=== PATIENT | female | born 1930 | race Caucasian/White ===

== ENCOUNTER 2018-03-16 23:49 | Observation (INO) ==
[~2018-03-16 23:49] MED LIST: Sod Chloride 0.9% Inj 1,000 ML IV.CONT SCH
--- NOTE | 2018-03-17 00:06 | ED ---
HPI General Chief Complaint: Stroke Alert Stated Complaint: Stroke Alert Time Seen by Provider: 03/16/18 23:56 Source: patient and EMS Mode of arrival: EMS History of Present Illness HPI Narrative: 87-year-old female presents to the emergency department by EMS transport from home 4 noted new onset confusion expressive aphasia weakness of the right upper extremity noted by patient and neighbor although now the patient is arrived to the emergency department identifies that some time prior to 10 PM she went to bed is unsure what time she went to bed awakened at 10 PM noted confusion and went to see her neighbor who noted the symptoms of confusion and expressive aphasia as well as a right upper extremity weakness. Paramedics arrived and noted patient to be ambulatory but had expressive aphasia and confusion blood sugar was 110 patient was alert and oriented 2 with a GCS of 14 and stroke alert was felt to be indicated. Patient upon arrival here remains with mild confusion but is aware of who she is where she is and the events although does not know what time she originally went to bed this evening. Paramedics note now that symptoms are much improved. Patient takes no blood thinning agents. Patient does have history of hypertension and dyslipidemia is not diabetic. Patient was reportedly normal according to paramedics per son's report as he spoke with her yesterday. Patient is recently a no one is in the home throughout the day reportedly. Onset (ago): unknown Timing confirmed by: family member (spoke with patient as normal yesterday) and caregiver (neighbor 30 minutes ago noted symptoms not seen normal prior to this since yesterday) Location: speech, right arm and altered History of same: No Severity: moderate (per EMS upon initial evaluation now mild) Quality: weak Relieving factors: none Exacerbating factors: other (unknown) Context: other (unknown) On Anticoagulants: No Associated symptoms: confusion Treatments Prior to Arrival: none Related Data Home Medications Medication Instructions Recorded Confirmed alendronate 70 mg PO QWEEK 03/17/18 03/17/18 allopurinol 100 mg PO DAILY 03/17/18 03/17/18 furosemide 20 mg PO DAILY 03/17/18 03/17/18 lansoprazole 30 mg PO DAILY 03/17/18 03/17/18 losartan 25 mg PO DAILY 03/17/18 03/17/18 potassium chloride 20 meq PO DAILY 03/17/18 03/17/18 simvastatin 40 mg PO QPM 03/17/18 03/17/18 timolol 1 drp OPHTHALMIC (EYE) BID 03/17/18 03/17/18 Allergies Allergy/AdvReac Type Severity Reaction Status Date / Time No Known Allergies Allergy Unverified 03/16/18 23:57 Review of Systems ROS: all other systems reviewed are negative [facility] Medical History Medical History High cholesterol (Acute) Hypertension (Acute) Social History Social History Substance History: No History of Abuse Second Hand Smoke Exposure: Yes Smoking Status: Never smoker How Often Do You Have a Drink Containing Alcohol: Never Recent Travel in [facility] within the Last 8 Weeks: No Recent Out of Country Travel within the Last 8 Weeks: No Exam Narrative Exam Narrative: GENERAL: Well-developed well-nourished elderly female in no acute respiratory distress GCS 14 mild expressive aphasia SKIN: Focused skin assessment warm/dry. HEAD: Atraumatic. Normocephalic. EYES: Pupils equal and round. No scleral icterus. No injection or drainage. ENT: No nasal bleeding or discharge. Mucous membranes pink and moist. NECK: Trachea midline. No JVD. CARDIOVASCULAR: Regular rate and rhythm. No murmur appreciated. RESPIRATORY: No accessory muscle use. Clear to auscultation. Breath sounds equal bilaterally. GASTROINTESTINAL: Abdomen soft, non-tender, nondistended. Hepatic and splenic margins not palpable. MUSCULOSKELETAL: No obvious deformities. No clubbing. No cyanosis. No edema. NEUROLOGICAL: Awake and alert. No obvious cranial nerve deficits. Motor grossly within normal limits. No pronator drift. Normal speech. PSYCHIATRIC: Appropriate mood and affect; insight and judgment normal. Course Initial Documented Vital Signs Pulse Oximetry 98 03/16/18 23:52 Last Documented Vital Signs Temperature 98.6 F 03/16/18 23:55 Pulse Rate 60 03/17/18 00:01 Respiratory Rate 22 03/16/18 23:55 Blood Pressure 199/87 H 03/16/18 23:55 Pulse Oximetry 98 03/17/18 00:11 NIH Stroke Scale NIH Stroke Scale Level of Consciousness: 0-Alert Orientation Questions: 0-Answers both correct Responds to Commands: 0-Both tasks correct Gaze Eye Movement: 0-Horizontal movement WNL Visual Reese: 0-No visual field defect Facial Movement: 0-Normal Motor Functions Arm LEFT: 0-No drift Motor Functions Arm RIGHT: 0-No drift Motor Functions Leg LEFT: 0-No drift Motor Functions Leg RIGHT: 0-No drift Limb Ataxia: 0-No ataxia Sensory Loss: 0-No sensory loss Best Language: 1-Mild aphasia Articulation: 0-Normal Extinction or Inattention Sensory: 0-Absent Total: 1 Medical Decision Making MDM Narrative Medical decision making narrative: Stroke alert called at 20 3:52 PM discussed case with neurologist Dr. Newton at 20 3:53 PM patient is not a TPA candidate administer aspirin head of bed flat continuous IV fluids 70 cc/h consult to neurology in the a.m. NIHSS:1 discussed with neurologist --now aware onset time unknown --not tpa candidate At 1238 AM per reading radiologist Dr. Oh CT brain noncontrast nothing acute old infarct in the right parietal temporal lobe. CTA head/neck no acute process @ 200AM GCS 15 back to baseline denies confusion no expressive aphasia discussed with Dr Dominguez for OBS Medical Screen Exam Complete: Yes Emergency Medical Condition: Yes Differential Diagnosis Differential Diagnosis: Altered mental status with expressive aphasia, TIA, CVA , ICH, arrhythmia, paroxysmal atrial fibrillation, ACS, depression, electrolyte disturbance, hypoglycemia, malignancy Medical Records Medical records reviewed: Yes I reviewed the patient's medical records. Has been seen by hematology, Dr Andujar, for abnormal white cell count notes not available Lab Data Lab results reviewed: Yes I reviewed the patient's lab results. Result diagrams: 03/17/18 00:05 Lab Results 03/16/18 03/17/18 03/17/18 Range/Units 23:58 00:05 00:05 WBC 6.2 (4.0-11.0) th/mm3 RBC 3.67 L (4.00-5.30) mil/mm3 Hgb 11.6 (11.6-15.3) gm/dL POC Hgb (Calc) (11.6-15.3) g/dL Hct 34.9 L (35.0-46.0) % POC Hct (35-46.0) % MCV 95.0 (80.0-100.0) fL MCH 31.6 (27.0-34.0) pg MCHC 33.2 (32.0-36.0) % RDW 14.9 (11.6-17.2) % Plt Count 198 (150-450) th/mm3 MPV 9.7 (7.0-11.0) fL Neut % (Auto) 54.7 (16.0-70.0) % Lymph % (Auto) 35.0 (9.0-44.0) % [place] % (Auto) 8.6 H (0.0-8.0) % Eos % (Auto) 1.1 (0.0-4.0) % Baso % (Auto) 0.6 (0.0-2.0) % Neut # (Auto) 3.4 (1.8-7.7) th/mm3 Lymph # (Auto) 2.2 (1.0-4.8) th/mm3 [place] # (Auto) 0.5 (0.0-0.9) th/mm3 Eos # (Auto) 0.1 (0.0-0.4) th/mm3 Baso # (Auto) 0.0 (0.0-0.2) th/mm3 WBC Differential . Differential Comment Auto diff final PT 10.0 (9.8-11.6) sec INR 1.0 Ratio APTT 19.5 L (24.3-30.1) sec Fibrinogen 274 (227-377) mg/dL POC Sodium (137-144) mmol/L POC Potassium (3.6-5.0) mmol/L POC Chloride (102-111) mmol/L POC BUN (5-21) mg/dL POC Creatinine (0.6-1.3) mg/dL POC Glucose 87 (68-110) mg/dl Total Creatine Kinase (26-192) U/L Troponin I (0.02-0.05) ng/mL Beta HCG, Quant (0-5) mIU/mL Blood Type Blood Type Recheck Antibody Screen 03/17/18 03/17/18 Range/Units 00:05 00:40 WBC (4.0-11.0) th/mm3 RBC (4.00-5.30) mil/mm3 Hgb (11.6-15.3) gm/dL POC Hgb (Calc) 11.2 L (11.6-15.3) g/dL Hct (35.0-46.0) % POC Hct 33.0 L (35-46.0) % MCV (80.0-100.0) fL MCH (27.0-34.0) pg MCHC (32.0-36.0) % RDW (11.6-17.2) % Plt Count (150-450) th/mm3 MPV (7.0-11.0) fL Neut % (Auto) (16.0-70.0) % Lymph % (Auto) (9.0-44.0) % [place] % (Auto) (0.0-8.0) % Eos % (Auto) (0.0-4.0) % Baso % (Auto) (0.0-2.0) % Neut # (Auto) (1.8-7.7) th/mm3 Lymph # (Auto) (1.0-4.8) th/mm3 [place] # (Auto) (0.0-0.9) th/mm3 Eos # (Auto) (0.0-0.4) th/mm3 Baso # (Auto) (0.0-0.2) th/mm3 WBC Differential Differential Comment PT (9.8-11.6) sec INR Ratio APTT (24.3-30.1) sec Fibrinogen (227-377) mg/dL POC Sodium 140 (137-144) mmol/L POC Potassium 3.9 (3.6-5.0) mmol/L POC Chloride 104 (102-111) mmol/L POC BUN 26 H (5-21) mg/dL POC Creatinine 1.3 (0.6-1.3) mg/dL POC Glucose 96 (68-110) mg/dl Total Creatine Kinase 56 (26-192) U/L Troponin I Less than 0.02 L (0.02-0.05) ng/mL Beta HCG, Quant 2 (0-5) mIU/mL Blood Type A Positive Blood Type Recheck Antibody Screen Negative Imaging Data Radiologist's impression: Head CT 03/16/18 23:57 CONCLUSION: 1. No bleed or convincing evidence for an acute ischemic event. 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 Report was called to Dr. King at 12:38 AM Head CTA 03/16/18 23:57 CONCLUSION: No acute abnormality. Patent intracranial vessels. Neck CTA 03/16/18 23:57 CONCLUSION: 1. Mild atherosclerotic plaque of the bilateral carotid bifurcations without evidence of significant narrowing. No thrombosis or other acute abnormality is demonstrated. 2. Thyroid nodules and if not previously done, further characterization with outpatient thyroid ultrasound is recommended. Chest X-Ray 03/17/18 00:01 CONCLUSION: No evidence of acute cardiopulmonary disease. ECG Data EKG Prior to Arrival: Yes Attestation: I personally reviewed and interpreted this ECG as follows: (EKG normal sinus rhythm rate [address] elevation or injury pattern with occasional PAC) Prior ECG tracings: not available for review Discharge Plan Discharge Disposition Patient Disposition: 30 Still Patient Discharge Condition Condition: Stable Discharge Details Diagnosis: Transient cerebral ischemia Physicians Team ED Provider: Susan King Primary Care Provider: UNKNOWN, Attending Provider: Crys Dominguez Other Providers: Diaz Newton Status ED Status: Admitted Observation Patient
[2018-03-17 00:28] LABS: Baso % (Auto) 0.6 % (0.0-2.0); Eos # (Auto) 0.1 th/mm3 (0.0-0.4); Eos % (Auto) 1.1 % (0.0-4.0); Hematocrit 34.9 % (35.0-46.0); Hemoglobin 11.6 gm/dL (11.6-15.3); Lymph # (Auto) 2.2 th/mm3 (1.0-4.8); Mean Corpuscular HGB Conc 33.2 % (32.0-36.0); Mean Corpuscular Hemoglobin 31.6 pg (27.0-34.0); Mean Platelet Volume 9.7 fL (7.0-11.0); Mono # (Auto) 0.5 th/mm3 (0.0-0.9); Mono % (Auto) 8.6 % (0.0-8.0); Neut # (Auto) 3.4 th/mm3 (1.8-7.7); Neut % (Auto) 54.7 % (16.0-70.0); Platelet Count 198 th/mm3 (150-450); Red Blood Count 3.67 mil/mm3 (4.00-5.30); Red Cell Distribution Width 14.9 % (11.6-17.2); White Blood Count 6.2 th/mm3 (4.0-11.0)
[2018-03-17 00:33] LABS: Activated Partial Thrombo Time 19.5 sec (24.3-30.1)
--- NOTE | 2018-03-17 00:41 | CT ---
EXAM DATE: 03/17/2018 12:33 AM EDT AGE/SEX: 87 years / Female INDICATIONS: Stroke alert; expressive aphasia, right facial droop. CLINICAL DATA: This is the patient's initial encounter. Patient reports that signs and symptoms have been present for 1 day and indicates a pain score of Nonresponsive. MEDICAL/SURGICAL HISTORY: Non-responsive. Non-responsive. RADIATION DOSE: 36.33 CTDI (mGy) COMPARISON: No prior exams available for comparison. TECHNIQUE: CT of the head without contrast. Using automated exposure control and adjustment of the mA and/or kV according to patient size, radiation dose was kept as low as reasonably achievable to ob tain optimal diagnostic quality images. DICOM format image data is available electronically for revi ew and comparison. FINDINGS: Cerebrum: The ventricles are normal for age. No evidence of midline shift, mass lesion, hemorrhage or acute infarction. No extraaxial fluid collections are seen. Small chronic encephalomalacia of the right parietotemporal region. No convincing evidence of an acute ischemic event. Posterior Fossa: The cerebellum and brainstem are intact. The 4th ventricle is midline. The cerebe llopontine angle is unremarkable. Extracranial: The visualized portion of the orbits is intact. Skull: The calvaria is intact. No evidence of skull fracture. CONCLUSION: 1. No bleed or convincing evidence for an acute ischemic event. 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 Report was called to Dr. King at 12:38 AM Electronically signed by: Dejan Oh MD 03/17/2018 12:39 AM EDT
--- NOTE | 2018-03-17 01:01 | CT ---
EXAM DATE: 03/17/2018 12:40 AM EDT AGE/SEX: 87 years / Female INDICATIONS: Stroke alert; episode of expressive aphasia. CLINICAL DATA: This is the patient's initial encounter. Patient reports that signs and symptoms have been present for 1 day and indicates a pain score of Nonresponsive. MEDICAL/SURGICAL HISTORY: Non-responsive. Non-responsive. RADIATION DOSE: 27.08 CTDI (mGy) ; Combined studies COMPARISON: [facility] [place], CT HEAD W/O CONTRAST, 03/17/2018. . TECHNIQUE: Volumetric scanning was performed using a multi-row detector CT scanner during bolus infu wilman of 96 ml Visipaque 320 (iodixanol) nonionic water-soluble contrast as a cumulative dose for mul tiple exams. The data was post processed with a variety of visualization algorithms including full volume maximum intensity projection, multi-planar sliding thin slab reformation, curved planar reform ation, and surface rendering techniques. Using automated exposure control and adjustment of the mA a nd/or kV according to patient size, radiation dose was kept as low as reasonably achievable to obtain optimal diagnostic quality images. DICOM format image data is available electronically for review a nd comparison. FINDINGS: There is excellent visualization of the major intracranial arteries out to the second-order branch ve ssels. There is no evidence for aneurysm, vessel truncation or stenosis, and no evidence for vascula r malformation. CONCLUSION: No acute abnormality. Patent intracranial vessels. Electronically signed by: Dejan Oh MD 03/17/2018 1:00 AM EDT
--- NOTE | 2018-03-17 01:05 | CT ---
EXAM DATE: 03/17/2018 12:57 AM EDT AGE/SEX: 87 years / Female INDICATIONS: Stroke alert; episode of expressive aphasia. CLINICAL DATA: This is the patient's initial encounter. Patient reports that signs and symptoms have been present for 1 day and indicates a pain score of Nonresponsive. MEDICAL/SURGICAL HISTORY: Non-responsive. Non-responsive. RADIATION DOSE: 36.33 CTDI (mGy) ; Combined studies COMPARISON: . TECHNIQUE: Volumetric scanning was performed using a multirow detector CT scanner during bolus infus ion of 96 ml Visipaque 320 (iodixanol) nonionic water-soluble contrast as a cumulative dose for mult iple exams. The data was postprocessed with a variety of visualization algorithms including full-vo lume maximum intensity projection, multiplanar sliding thin-slab reformation, curved-planar reformati on, and surface-rendering techniques. Using automated exposure control and adjustment of the mA and/ or kV according to patient size, radiation dose was kept as low as reasonably achievable to obtain op timal diagnostic quality images. DICOM format image data is available electronically for review and comparison. Percent stenosis is calculated using the diameter of the stenotic region over the diameter of the nor mal distal internal carotid artery. FINDINGS: Aortic Arch: There is a three-vessel origin of the great vessels from the aorta. No evidence of ost ial narrowing Right Carotid: There is atherosclerosis involving the bulb and proximal internal carotid artery with out significant narrowing. Left Carotid: There is atherosclerosis of the bulb and proximal internal carotid artery without sign ificant narrowing. Vertebrals: The vertebral arteries have a symmetric diameter. No stenotic lesions are seen. Nodules are seen of the thyroid gland. CONCLUSION: 1. Mild atherosclerotic plaque of the bilateral carotid bifurcations without evidence of significant narrowing. No thrombosis or other acute abnormality is demonstrated. 2. Thyroid nodules and if not previously done, further characterization with outpatient thyroid ultr asound is recommended. Electronically signed by: Dejan Oh MD 03/17/2018 1:03 AM EDT
--- NOTE | 2018-03-17 01:06 | XR ---
EXAM DATE: 03/17/2018 12:38 AM EDT AGE/SEX: 87 years / Female INDICATIONS: Stroke alert. CLINICAL DATA: This is the patient's initial encounter. Patient reports that signs and symptoms have been present for 1 day and indicates a pain score of 0/10. MEDICAL/SURGICAL HISTORY: Hypertension. None. COMPARISON: No prior exams available for comparison. FINDINGS: A single AP view of the chest demonstrates the lungs to be symmetrically aerated without evidence of mass, infiltrate or effusion. The cardiomediastinal contours are unremarkable. Osseous structures a re intact. CONCLUSION: No evidence of acute cardiopulmonary disease. Electronically signed by: Dejan Oh MD 03/17/2018 1:05 AM EDT
[2018-03-17 01:07] LABS: Beta HCG,Quantitative 2 mIU/mL (0-5)
[2018-03-17 01:08] LABS: Creatine Kinase 56 U/L (26-192)
[2018-03-17] MEDS ORDERED: Aspirin 325 MG Tablet PO ONE (01:55)
[2018-03-17] MEDS ORDERED: Bisacodyl 10 MG Supp RECTAL PRN (02:20)
[2018-03-17] MEDS ORDERED: Acetaminophen 325 MG Tablet PO PRN (02:20)
--- NOTE | 2018-03-17 03:38 | P.HPIM ---
History of Present Illness Primary Care Physician: UNKNOWN History of Present Illness: This is an 87-year-old female with a PMH of HTN, Hyperlipidemia and h/o CVA who was brought to the ER by EMS as a Stroke Alert. Pt states she has very little recollection of events, remembers she was "very confused" and went to her neighbor's house who then called EMS. Per report, pt noted to have slurred speech and right-sided weakness. Symptoms all resolved at this time. On arrival, BP 199/87, HR 62, O2 sat 98% on 3L NC, Afebrile. CBC essentially unremarkable. INR 1.0. Chemistry unremarkable. CT Head with no acute ischemic event, old right parietotemporal infarct, pt states she is aware of this. CTA Head no acute abnormalit. CTA Neck mild atherosclerotic plaque of bilateral carotid bifurcations, no significant narrowing. Dr. Newton consulted , pt not TPA candidate. Does take ASA 81mg daily - Diagnosis (1) TIA (transient ischemic attack) (2) HTN (hypertension) Review of Systems PAST FAMILY HISTORY: Reviewed. No h/o DM or CAD All other systems reviewed negative except as stated in [facility] - History History Provided By: Patient, [employer] / EMT - Medical History Medical History: Medical History (Last Reviewed 03/17/18 @ 00:05 by Susan King MD) High cholesterol Hypertension - Tobacco History Second Hand Smoke Exposure: Yes Smoking Status: Never smoker - Alcohol History How Often Do You Have a Drink Containing Alcohol: Never - Substance Use History Substance History: No History of Abuse - Travel History Recent Travel in the [place] Within the Last 8 Weeks: No Recent Travel Out of the Country Within the Last 8 Weeks: No - Immunization History Tetanus Immunization: Unsure Hx Influenza Vaccine This Season: Yes Medications and Allergies Active Medications: Active Medications Acetaminophen (Tylenol) 650 mg PO Q4H PRN PRN Reason: Temp > 100.4 Al Hydroxide/Mg Hydroxide (Milk Of Magnesia Liq) 30 ml PO Q12H PRN PRN Reason: Mild Constipation Bisacodyl (Dulcolax Supp) 10 mg RECTAL DAILY PRN PRN Reason: SEVERE CONSITIPATION Enalaprilat (Vasotec Inj) 1.25 mg IV.PUSH Q4H PRN PRN Reason: For SBP > 220 or DBP > 120 Sodium Chloride (Ns Inj) 1,000 mls @ 70 mls/hr IV.CONT .[id number] JASBIR Lactulose (Lactulose Liq) 30 ml PO DAILY PRN PRN Reason: SEVERE CONSITIPATION Ondansetron HCl (Zofran Inj) 4 mg IV.PUSH Q6H PRN PRN Reason: NAUSEA OR VOMITING Senna/Docusate Sodium (Barbra-Colace) 1 tab PO BID [facility] Sennosides (Senokot) 17.2 mg PO Q12H PRN PRN Reason: Moderate Constipation Allergies Allergy/AdvReac Type Severity Reaction Status Date / Time No Known Allergies Allergy Unverified 03/16/18 23:57 Home Medications Medication Instructions Recorded Confirmed Type alendronate 70 mg PO QWEEK 03/17/18 03/17/18 History allopurinol 100 mg PO DAILY 03/17/18 03/17/18 History furosemide 20 mg PO DAILY 03/17/18 03/17/18 History lansoprazole 30 mg PO DAILY 03/17/18 03/17/18 History losartan 25 mg PO DAILY 03/17/18 03/17/18 History potassium chloride 20 meq PO DAILY 03/17/18 03/17/18 History simvastatin 40 mg PO QPM 03/17/18 03/17/18 History timolol 1 drp OPHTHALMIC (EYE) BID 03/17/18 03/17/18 History Exam Vital signs: Vital Signs 03/16/18 23:52 03/16/18 23:55 03/17/18 00:01 Temperature 98.6 F Pulse Rate 62 60 Respiratory Rate 22 Blood Pressure 199/87 H Pulse Oximetry 98 100 03/17/18 00:11 Temperature Pulse Rate Respiratory Rate Blood Pressure Pulse Oximetry 98 Narrative: PE: GENERAL: Generally pleasant elderly white female in no acute distress. No slurred speech SKIN: Focused skin assessment warm and dry. HEENT: PERRLA, EOMI. No scleral icterus or conjunctival pallor. No lid lag or facial droop. CARDIOVASCULAR: Regular rate and rhythm. No obvious murmurs to auscultation. No chest tenderness to palpation. RESPIRATORY: No obvious rhonchi or wheezing. Clear to auscultation. Breath sounds equal bilaterally. GASTROINTESTINAL: Abdomen soft, non-tender, nondistended. BS normal. MUSCULOSKELETAL: Extremities without clubbing, cyanosis, or edema. No obvious deformities. NEUROLOGICAL: Awake, alert and oriented x4. No focal neurologic deficits. Strength 5/5 all extremities. Moving both upper and lower extremities spontaneously. PSYCHIATRIC: Appropriate mood and affect. Insight and judgment normal. Results - Labs CBC & Chem 7: 03/17/18 00:05 Labs: Short CBC 03/17/18 Range/Units 00:05 WBC 6.2 (4.0-11.0) th/mm3 Hgb 11.6 (11.6-15.3) gm/dL Hct 34.9 L (35.0-46.0) % Plt Count 198 (150-450) th/mm3 Cardiac Enzymes 03/17/18 Range/Units 00:05 Total Creatine Kinase 56 (26-192) U/L Troponin I Less than 0.02 L (0.02-0.05) ng/mL - Imaging Impressions Head CT 03/16/18 23:57 CONCLUSION: 1. No bleed or convincing evidence for an acute ischemic event. 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 Report was called to Dr. King at 12:38 AM Head CTA 03/16/18 23:57 CONCLUSION: No acute abnormality. Patent intracranial vessels. Neck CTA 03/16/18 23:57 CONCLUSION: 1. Mild atherosclerotic plaque of the bilateral carotid bifurcations without evidence of significant narrowing. No thrombosis or other acute abnormality is demonstrated. 2. Thyroid nodules and if not previously done, further characterization with outpatient thyroid ultrasound is recommended. Chest X-Ray 03/17/18 00:01 CONCLUSION: No evidence of acute cardiopulmonary disease. Caprini VTE Risk Assessment Caprini VTE Risk Assessment: No/Low Risk (score <= 1) Caprini Risk Assessment Model: Point Value = 1 Point Value = 2 Point Value = 3 Point Value = 5 Age 41-60 Minor surgery BMI > 25 kg/m2 Swollen legs Varicose veins or History of unexplained or recurrent spontaneous Oral contraceptives or hormone replacement Sepsis (< 1 month) Serious lung disease, including pneumonia (< 1 month) Abnormal pulmonary function Acute myocardial infarction Congestive heart failure (< 1 month) History of inflammatory bowel disease Medical patient at bed rest Age 61-74 Arthroscopic surgery Major open surgery (> 45 min) Laparoscopic surgery (> 45 min) Malignancy Confined to bed (> 72 hours) Immobilizing plaster cast Central venous access Age >= 75 History of VTE Family history of VTE Factor V Leiden Prothrombin [id number] Lupus anticoagulant Anticardiolipin antibodies Elevated serum homocysteine Heparin-induced thrombocytopenia Other congenital or acquired thrombophilia Stroke (< 1 month) Elective arthroplasty Hip, pelvis, or leg fracture Acute spinal cord injury (< 1 month) Prophylaxis Regimen: Total Risk Factor Score Risk Level Prophylaxis Regimen 0-1 Low Early ambulation 2 Moderate Order ONE of the following: *Sequential Compression Device (SCD) *Heparin 5000 units SQ BID 3-4 Higher Order ONE of the following medications: *Heparin 5000 units SQ TID *Enoxaparin/Lovenox 40 mg SQ daily (WT < 150 kg, CrCl > 30 mL/min) *Enoxaparin/Lovenox 30 mg SQ daily (WT < 150 kg, CrCl > 10-29 mL/min) *Enoxaparin/Lovenox 30 mg SQ BID (WT < 150 kg, CrCl > 30 mL/min) AND/OR *Sequential Compression Device (SCD) 5 or more Highest Order ONE of the following medications: *Heparin 5000 units SQ TID (Preferred with Epidurals) *Enoxaparin/Lovenox 40 mg SQ daily (WT < 150 kg, CrCl > 30 mL/min) *Enoxaparin/Lovenox 30 mg SQ daily (WT < 150 kg, CrCl > 10-29 mL/min) *Enoxaparin/Lovenox 30 mg SQ BID (WT < 150 kg, CrCl > 30 mL/min) AND *Sequential Compression Device (SCD) Assessment and Plan - Assessment (1) TIA (transient ischemic attack) Code(s): G45.9 - Transient cerebral ischemic attack, unspecified Status: Acute (2) HTN (hypertension) Code(s): I10 - Essential (primary) hypertension Status: Acute - Plan A/P: 1. TIA: acute onset of confusion, expressive aphasia and right-sided weakness , now resolved. CT Head w/ old right parietotemporal infarct, images reviewed. CTA Head negative, CTA Neck w/ mild plaque bilateral carotid bifurcations, no significant narrowing. Admit for Observation, telemetry, Consult Neurology for further eval/recommendations. ASA 325mg, Statin. Check Lipid Profile, Hgb A1c. PT for eval/tx. 2. HTN: Uncontrolled, BP 199/87, HR 62 on arrival, will allow for permissive HTN, antihypertensives for BP >220 systolic, monitor BP. 3. DVT Prophylaxis: SCD/Teds 4. Social work for d/c planning as needed 5. Case discussed w/ ER physician at length, labs/records/imaging reviewed by me.
[2018-03-17 04:01] LABS: Amphetamine Screen,Urine Neg (Neg); Barbiturate Screen,Urine Neg (Neg); Cannabinoid Screen,Urine Neg (Neg); Cocaine Screen,Urine Neg (Neg)
[2018-03-17 04:02] LABS: Opiate Screen,Urine Neg (Neg)
[2018-03-17 04:03] LABS: Bacteria,Urine Rare /hpf; Bilirubin,Urine Negative (Negative); Clarity,Urine Clear (Clear); Color,Urine Straw (Yellw/Straw); Glucose,Urine (UA) Negative (Negative); Leukocyte Esterase,Urine Small (Negative); Nitrite,Urine Negative (Negative); Specific Gravity,Urine 1.025 (1.002-1.035); Squamous Epithelial Cell,Urine 1 /hpf (0-5)
[2018-03-17] MEDS: Sod Chloride 0.9% Inj 1,000 ML IV.CONT SCH ×2 (04:07→15:55)
[2018-03-17 07:30] LABS: Baso % (Auto) 0.5 % (0.0-2.0); Eos % (Auto) 0.5 % (0.0-4.0); Hematocrit 33.7 % (35.0-46.0); Hemoglobin 11.1 gm/dL (11.6-15.3); Lymph # (Auto) 1.5 th/mm3 (1.0-4.8); Lymph % (Auto) 24.5 % (9.0-44.0); Mean Corpuscular Hemoglobin 31.5 pg (27.0-34.0); Mean Corpuscular Volume 95.4 fL (80.0-100.0); Mean Platelet Volume 9.8 fL (7.0-11.0); Mono # (Auto) 0.7 th/mm3 (0.0-0.9); Mono % (Auto) 10.7 % (0.0-8.0); Neut # (Auto) 3.9 th/mm3 (1.8-7.7); Neut % (Auto) 63.8 % (16.0-70.0); Platelet Count 174 th/mm3 (150-450); Red Blood Count 3.53 mil/mm3 (4.00-5.30); Red Cell Distribution Width 14.9 % (11.6-17.2); White Blood Count 6.2 th/mm3 (4.0-11.0)
[2018-03-17 07:50] LABS: Albumin 2.9 g/dL (3.4-5.0); Anion Gap 6 meq/L (5-15); Aspartate Aminotransferase 21 U/L (15-37); Blood Urea Nitrogen 21 mg/dL (7-18); Calcium 8.1 mg/dL (8.5-10.1); Carbon Dioxide 25.9 meq/L (21.0-32.0); Chloride 109 meq/L (98-107); Glomerular Filtration Rate 46 mL/min (>89); Glucose,Random 91 mg/dL (74-106); Sodium 141 meq/L (136-145)
[2018-03-17 07:51] LABS: Alanine Aminotransferase 16 U/L (10-53); Cholesterol 99 mg/dL (120-200); Triglycerides 77 mg/dL (42-150)
[2018-03-17 07:54] LABS: Alkaline Phosphatase 69 U/L (45-117); Chol/HDL Ratio 2.22 Ratio; HDL Cholesterol 44.5 mg/dL (40.0-60.0); LDL Cholesterol,Calculated 39 mg/dL (0-99); Total Protein 6.5 g/dL (6.4-8.2)
--- NOTE | 2018-03-17 09:30 | P.CONNEU ---
History of Present Illness Service: Neurology Primary Care Provider: UNKNOWN Chief Complaint: Stroke alert History of Present Illness: Pleasant 87-year-old female brought in for episode of confusion. Late at night states she fell, confused walked out to see her neighbor. Some history of her having some right sided weakness although patient cannot verify this to be. She does take aspirin daily. No previous history of TIA stroke was brought in for further evaluation. Blood pressure is noted be [address] brain scan no acute lesion. CTAs brain and carotid no significant vaso-occlusive disease. Her symptoms had resolved therefore was not considered IV TPA candidate. She states this never happened to her before. Denies any headache vision loss focal weakness. Slept well feels well this morning. She did call her son lives in [place] who has come up to see her. Unfortunately she is a recent her spouse earlier this month. Review of Systems All other systems reviewed negative except as stated in HPI [facility] - History History Provided By: Patient - Medical History Medical History: Medical History (Last Reviewed 03/17/18 @ 07:27 by Juanito Delgadillo) High cholesterol Hypertension - Tobacco History Second Hand Smoke Exposure: No Tobacco Use In Past 30 Days: No Smoking Status: Former smoker - Alcohol History How Often Do You Have a Drink Containing Alcohol: Never - Substance Use History Substance History: No History of Abuse - Travel History Recent Travel in the [place] Within the Last 8 Weeks: No Recent Travel Out of the Country Within the Last 8 Weeks: No - Immunization History Tetanus Immunization: Unsure Hx Influenza Vaccine This Season: Yes Medications and Allergies Active Medications: Active Medications Acetaminophen (Tylenol) 650 mg PO Q4H PRN PRN Reason: Temp > 100.4 Al Hydroxide/Mg Hydroxide (Milk Of Magnesia Liq) 30 ml PO Q12H PRN PRN Reason: Mild Constipation Aspirin (Ecotrin) 325 mg PO DAILY JASBIR Bisacodyl (Dulcolax Supp) 10 mg RECTAL DAILY PRN PRN Reason: SEVERE CONSITIPATION Enalaprilat (Vasotec Inj) 1.25 mg IV.PUSH Q4H PRN PRN Reason: For SBP > 220 or DBP > 120 Sodium Chloride (Ns Inj) 1,000 mls @ 70 mls/hr IV.CONT .[id number] JASBIR Last Admin: 03/17/18 04:07 Dose: 70 mls/hr Lactulose (Lactulose Liq) 30 ml PO DAILY PRN PRN Reason: SEVERE CONSITIPATION Ondansetron HCl (Zofran Inj) 4 mg IV.PUSH Q6H PRN PRN Reason: NAUSEA OR VOMITING Pravastatin Sodium (Pravachol) 40 mg PO DAILY JASBIR Senna/Docusate Sodium (Barbra-Colace) 1 tab PO BID JASBIR Sennosides (Senokot) 17.2 mg PO Q12H PRN PRN Reason: Moderate Constipation Allergies Allergy/AdvReac Type Severity Reaction Status Date / Time No Known Allergies Allergy Unverified 03/16/18 23:57 Home Medications Medication Instructions Recorded Confirmed Type alendronate 70 mg PO QWEEK 03/17/18 03/17/18 History allopurinol 100 mg PO DAILY 03/17/18 03/17/18 History furosemide 20 mg PO DAILY 03/17/18 03/17/18 History lansoprazole 30 mg PO DAILY 03/17/18 03/17/18 History losartan 25 mg PO DAILY 03/17/18 03/17/18 History potassium chloride 20 meq PO DAILY 03/17/18 03/17/18 History simvastatin 40 mg PO QPM 03/17/18 03/17/18 History timolol 1 drp OPHTHALMIC (EYE) BID 03/17/18 03/17/18 History Exam Vital signs: Vital Signs 03/16/18 23:52 03/16/18 23:55 03/17/18 00:01 Temperature 98.6 F Pulse Rate 62 60 Respiratory Rate 22 Blood Pressure 199/87 H Pulse Oximetry 98 100 03/17/18 00:11 03/17/18 00:30 03/17/18 01:00 Temperature Pulse Rate 64 70 Respiratory Rate 22 24 Blood Pressure 151/69 H 159/72 H Pulse Oximetry 98 100 100 03/17/18 02:00 03/17/18 03:00 03/17/18 04:00 Temperature 98.0 F Pulse Rate 68 66 67 Respiratory Rate 16 21 18 Blood Pressure 159/70 H 157/68 H 139/64 Pulse Oximetry 100 98 97 03/17/18 05:43 03/17/18 08:30 Temperature 97.5 F L Pulse Rate 62 66 Respiratory Rate 18 Blood Pressure 152/75 H Pulse Oximetry 97 Intake & Output 03/16/18 03/17/18 03/17/18 18:59 06:59 18:59 Intake Total 0 / 0 Balance 0 / 0 Intake: Oral 0 / 0 Other: # Voids 0 Narrative: GENERAL: in NAD, looks well SKIN: Warm and dry. HEAD: Atraumatic. Normocephalic. EYES: Pupils equal and round. No scleral icterus. ENT: No nasal bleeding or discharge. Mucous membranes pink and moist. NECK: Trachea midline. No JVD. CARDIOVASCULAR: Regular rate and rhythm. RESPIRATORY: No accessory muscle use. GASTROINTESTINAL: Abdomen soft, non-tender, nondistended. MUSCULOSKELETAL: Extremities without clubbing, cyanosis, or edema. No obvious deformities. NEUROLOGICAL: Awake and alert. Oriented 3 no aphasia, fluent articulate, No facial asymmetry, OU 3-2mm, eomi, VFF, No drift, Motor grossly within normal limits. Five out of 5 muscle strength in the arms and legs. Tone normal in all 4 limbs, Sensory normal in all 4 extrermities to pin, msr 1-2+ sym, no clonus, planterflexor, PSYCHIATRIC: Appropriate mood and affect; insight and judgment normal. - Constitutional no acute distress - Routine HEENT Exam Head: Present: normocephalic Results - Labs CBC & Chem 7: 03/17/18 07:10 03/17/18 07:10 Labs: Laboratory Results - last 24 hr 03/16/18 03/17/18 03/17/18 23:58 00:05 00:05 WBC 6.2 RBC 3.67 L Hgb 11.6 POC Hgb (Calc) Hct 34.9 L POC Hct MCV 95.0 MCH 31.6 MCHC 33.2 RDW 14.9 Plt Count 198 MPV 9.7 Neut % (Auto) 54.7 Lymph % (Auto) 35.0 [place] % (Auto) 8.6 H Eos % (Auto) 1.1 Baso % (Auto) 0.6 Neut # (Auto) 3.4 Lymph # (Auto) 2.2 [place] # (Auto) 0.5 Eos # (Auto) 0.1 Baso # (Auto) 0.0 WBC Differential . Differential Comment Auto diff final PT 10.0 INR 1.0 APTT 19.5 L Fibrinogen 274 POC Sodium Sodium POC Potassium Potassium POC Chloride Chloride Carbon Dioxide Anion Gap POC BUN BUN Creatinine POC Creatinine Estimated GFR POC Glucose 87 Random Glucose Calcium Total Bilirubin AST ALT Alkaline Phosphatase Total Creatine Kinase Troponin I Total Protein Albumin Triglycerides Cholesterol LDL Cholesterol, Calc HDL Cholesterol Cholesterol/HDL Ratio Beta HCG, Quant Urine Color Urine Clarity Urine pH Ur Specific [place] Urine Protein Urine Glucose (UA) Urine Ketones Urine Occult Blood Urine Nitrate Urine Bilirubin Urine Urobilinogen Ur Leukocyte Esterase Urine RBC Urine WBC Ur Squamous Epith Cells Urine Bacteria Micro UA Comment Ur Microscopic Review Urine Culture Comments Urine Opiates Screen Ur Barbiturates Screen Ur Amphetamines Screen U Benzodiazepines Scrn Urine Cocaine Screen U Cannabinoids Screen Blood Type Blood Type Recheck Antibody Screen 03/17/18 03/17/18 03/17/18 00:05 00:40 03:30 WBC RBC Hgb POC Hgb (Calc) 11.2 L Hct POC Hct 33.0 L MCV MCH MCHC RDW Plt Count MPV Neut % (Auto) Lymph % (Auto) [place] % (Auto) Eos % (Auto) Baso % (Auto) Neut # (Auto) Lymph # (Auto) [place] # (Auto) Eos # (Auto) Baso # (Auto) WBC Differential Differential Comment PT INR APTT Fibrinogen POC Sodium 140 Sodium POC Potassium 3.9 Potassium POC Chloride 104 Chloride Carbon Dioxide Anion Gap POC BUN 26 H BUN Creatinine POC Creatinine 1.3 Estimated GFR POC Glucose 96 Random Glucose Calcium Total Bilirubin AST ALT Alkaline Phosphatase Total Creatine Kinase 56 Troponin I Less than 0.02 L Total Protein Albumin Triglycerides Cholesterol LDL Cholesterol, Calc HDL Cholesterol Cholesterol/HDL Ratio Beta HCG, Quant 2 Urine Color Urine Clarity Urine pH Ur Specific [place] Urine Protein Urine Glucose (UA) Urine Ketones Urine Occult Blood Urine Nitrate Urine Bilirubin Urine Urobilinogen Ur Leukocyte Esterase Urine RBC Urine WBC Ur Squamous Epith Cells Urine Bacteria Micro UA Comment Ur Microscopic Review Urine Culture Comments Urine Opiates Screen Neg Ur Barbiturates Screen Neg Ur Amphetamines Screen Neg U Benzodiazepines Scrn Neg Urine Cocaine Screen Neg U Cannabinoids Screen Neg Blood Type A Positive Blood Type Recheck Antibody Screen Negative 03/17/18 03/17/18 03/17/18 03:30 07:10 07:10 WBC 6.2 RBC 3.53 L Hgb 11.1 L POC Hgb (Calc) Hct 33.7 L POC Hct MCV 95.4 MCH 31.5 MCHC 33.0 RDW 14.9 Plt Count 174 MPV 9.8 Neut % (Auto) 63.8 Lymph % (Auto) 24.5 [place] % (Auto) 10.7 H Eos % (Auto) 0.5 Baso % (Auto) 0.5 Neut # (Auto) 3.9 Lymph # (Auto) 1.5 [place] # (Auto) 0.7 Eos # (Auto) 0.0 Baso # (Auto) 0.0 WBC Differential . Differential Comment Auto diff final PT INR APTT Fibrinogen POC Sodium Sodium 141 POC Potassium Potassium 4.0 POC Chloride Chloride 109 H Carbon Dioxide 25.9 Anion Gap 6 POC BUN BUN 21 H Creatinine 1.13 H POC Creatinine Estimated GFR 46 L POC Glucose Random Glucose 91 Calcium 8.1 L Total Bilirubin 0.5 AST 21 ALT 16 Alkaline Phosphatase 69 Total Creatine Kinase Troponin I Total Protein 6.5 Albumin 2.9 L Triglycerides 77 Cholesterol 99 L LDL Cholesterol, Calc 39 HDL Cholesterol 44.5 Cholesterol/HDL Ratio 2.22 Beta HCG, Quant Urine Color Straw Urine Clarity Clear Urine pH 5.0 Ur Specific [place] 1.025 Urine Protein Negative Urine Glucose (UA) Negative Urine Ketones Negative Urine Occult Blood Negative Urine Nitrate Negative Urine Bilirubin Negative Urine Urobilinogen Less than 2 Ur Leukocyte Esterase Small H Urine RBC Less than 1 Urine WBC 9 H Ur Squamous Epith Cells 1 Urine Bacteria Rare H Micro UA Comment Culture indicated Ur Microscopic Review Not Reportable Urine Culture Comments Culture indicated Urine Opiates Screen Ur Barbiturates Screen Ur Amphetamines Screen U Benzodiazepines Scrn Urine Cocaine Screen U Cannabinoids Screen Blood Type Blood Type Recheck Antibody Screen - Imaging Impressions Head CT 03/16/18 23:57 CONCLUSION: 1. No bleed or convincing evidence for an acute ischemic event. 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 Report was called to Dr. King at 12:38 AM Head CTA 03/16/18 23:57 CONCLUSION: No acute abnormality. Patent intracranial vessels. Neck CTA 03/16/18 23:57 CONCLUSION: 1. Mild atherosclerotic plaque of the bilateral carotid bifurcations without evidence of significant narrowing. No thrombosis or other acute abnormality is demonstrated. 2. Thyroid nodules and if not previously done, further characterization with outpatient thyroid ultrasound is recommended. Chest X-Ray 03/17/18 00:01 CONCLUSION: No evidence of acute cardiopulmonary disease. Review/Management - Diagnosis (1) Acute confusion Code(s): R41.0 - Disorientation, unspecified Status: Acute Current Visit: Yes (2) Transient cerebral ischemia Code(s): G45.9 - Transient cerebral ischemic attack, unspecified Status: Acute Current Visit: Yes (3) HTN (hypertension) Code(s): I10 - Essential (primary) hypertension Status: Acute Current Visit : Yes (4) Hypertensive encephalopathy Code(s): I67.4 - Hypertensive encephalopathy Status: Acute Current Visit: Yes - Review/Management Plan: Possible hypertensive encephalopathy versus TIA Recently living alone Recommendations Follow-up MRI brain, echo Plavix EEG Blood pressure lipid control May require more supervision at home. Her son lives in [place]
[2018-03-17] MEDS: Senna/Docusate Sodium 8.6/50 MG Tablet PO SCH ×2 (09:53→20:54)
[2018-03-17 10:29] LABS: Vitamin B12 435 pg/mL (193-986)
[2018-03-17 11:39] LABS: Hemoglobin A1c 5.8 % (4.3-6.0)
--- NOTE | 2018-03-17 13:25 | P.PN ---
Subjective Interval history: Follow up on patient with TIA. Patient seen and examined. Patient states she feels very well. She denies any acute medical complaints. She denies any headache, vision changes, lightheadedness, numbness/tingling or weakness. She does report that she is having difficulty recalling words. She denies any chest pain or shortness of breath. Physical Exam Vital signs: Vital Signs 03/16/18 23:52 03/16/18 23:55 03/17/18 00:01 Temperature 98.6 F Pulse Rate 62 60 Respiratory Rate 22 Blood Pressure 199/87 H Pulse Oximetry 98 100 03/17/18 00:11 03/17/18 00:30 03/17/18 01:00 Temperature Pulse Rate 64 70 Respiratory Rate 22 24 Blood Pressure 151/69 H 159/72 H Pulse Oximetry 98 100 100 03/17/18 02:00 03/17/18 03:00 03/17/18 04:00 Temperature 98.0 F Pulse Rate 68 66 67 Respiratory Rate 16 21 18 Blood Pressure 159/70 H 157/68 H 139/64 Pulse Oximetry 100 98 97 03/17/18 05:43 03/17/18 08:30 03/17/18 11:59 Temperature 97.5 F L 98.5 F Pulse Rate 62 66 62 Respiratory Rate 18 20 Blood Pressure 152/75 H 133/59 L Pulse Oximetry 97 98 Intake & Output 03/16/18 03/17/18 03/17/18 18:59 06:59 18:59 Intake Total 0 / 0 Balance 0 / 0 Intake: Oral 0 / 0 Other: # Voids 0 Narrative: GENERAL: WDWN female, INAD. Awake and alert. Appears comfortable. SKIN: Warm and dry. HEENT: Atraumatic. Normocephalic. Pupils equal and round. No scleral icterus. No injection or drainage. No nasal bleeding or discharge. Mucous membranes pink and moist. NECK: Trachea midline. CARDIOVASCULAR: Regular rate and rhythm. RESPIRATORY: No accessory muscle use. Clear to auscultation. Breath sounds equal bilaterally. GASTROINTESTINAL: Abdomen soft, non-tender, nondistended. +BS. MUSCULOSKELETAL: Extremities without clubbing, cyanosis, or edema. No obvious deformities. NEUROLOGICAL: Awake and alert. No obvious cranial nerve deficits. Motor grossly within normal limits. Able to move all 4 extremities spontaneously. Normal speech. PSYCHIATRIC: Appropriate mood and affect; insight and judgment normal. Results - Labs CBC & Chem 7: 03/17/18 07:10 03/17/18 07:10 Laboratory Results - last 24 hr 03/16/18 03/17/18 03/17/18 23:58 00:05 00:05 WBC 6.2 RBC 3.67 L Hgb 11.6 POC Hgb (Calc) Hct 34.9 L POC Hct MCV 95.0 MCH 31.6 MCHC 33.2 RDW 14.9 Plt Count 198 MPV 9.7 Neut % (Auto) 54.7 Lymph % (Auto) 35.0 Wagoner % (Auto) 8.6 H Eos % (Auto) 1.1 Baso % (Auto) 0.6 Neut # (Auto) 3.4 Lymph # (Auto) 2.2 Wagoner # (Auto) 0.5 Eos # (Auto) 0.1 Baso # (Auto) 0.0 WBC Differential . Differential Comment Auto diff final PT 10.0 INR 1.0 APTT 19.5 L Fibrinogen 274 POC Sodium Sodium POC Potassium Potassium POC Chloride Chloride Carbon Dioxide Anion Gap POC BUN BUN Creatinine POC Creatinine Estimated GFR POC Glucose 87 Random Glucose Hemoglobin A1c Calcium Total Bilirubin AST ALT Alkaline Phosphatase Total Creatine Kinase Troponin I C-Reactive Protein Total Protein Albumin Triglycerides Cholesterol LDL Cholesterol, Calc HDL Cholesterol Cholesterol/HDL Ratio Vitamin B12 TSH Beta HCG, Quant Urine Color Urine Clarity Urine pH Ur Specific [place] Urine Protein Urine Glucose (UA) Urine Ketones Urine Occult Blood Urine Nitrate Urine Bilirubin Urine Urobilinogen Ur Leukocyte Esterase Urine RBC Urine WBC Ur Squamous Epith Cells Urine Bacteria Micro UA Comment Ur Microscopic Review Urine Culture Comments Urine Opiates Screen Ur Barbiturates Screen Ur Amphetamines Screen U Benzodiazepines Scrn Urine Cocaine Screen U Cannabinoids Screen Blood Type Blood Type Recheck Antibody Screen 03/17/18 03/17/18 03/17/18 00:05 00:40 03:30 WBC RBC Hgb POC Hgb (Calc) 11.2 L Hct POC Hct 33.0 L MCV MCH MCHC RDW Plt Count MPV Neut % (Auto) Lymph % (Auto) Wagoner % (Auto) Eos % (Auto) Baso % (Auto) Neut # (Auto) Lymph # (Auto) Wagoner # (Auto) Eos # (Auto) Baso # (Auto) WBC Differential Differential Comment PT INR APTT Fibrinogen POC Sodium 140 Sodium POC Potassium 3.9 Potassium POC Chloride 104 Chloride Carbon Dioxide Anion Gap POC BUN 26 H BUN Creatinine POC Creatinine 1.3 Estimated GFR POC Glucose 96 Random Glucose Hemoglobin A1c Calcium Total Bilirubin AST ALT Alkaline Phosphatase Total Creatine Kinase 56 Troponin I Less than 0.02 L C-Reactive Protein Total Protein Albumin Triglycerides Cholesterol LDL Cholesterol, Calc HDL Cholesterol Cholesterol/HDL Ratio Vitamin B12 TSH Beta HCG, Quant 2 Urine Color Urine Clarity Urine pH Ur Specific [place] Urine Protein Urine Glucose (UA) Urine Ketones Urine Occult Blood Urine Nitrate Urine Bilirubin Urine Urobilinogen Ur Leukocyte Esterase Urine RBC Urine WBC Ur Squamous Epith Cells Urine Bacteria Micro UA Comment Ur Microscopic Review Urine Culture Comments Urine Opiates Screen Neg Ur Barbiturates Screen Neg Ur Amphetamines Screen Neg U Benzodiazepines Scrn Neg Urine Cocaine Screen Neg U Cannabinoids Screen Neg Blood Type A Positive Blood Type Recheck Antibody Screen Negative 03/17/18 03/17/18 03/17/18 03:30 07:10 07:10 WBC 6.2 RBC 3.53 L Hgb 11.1 L POC Hgb (Calc) Hct 33.7 L POC Hct MCV 95.4 MCH 31.5 MCHC 33.0 RDW 14.9 Plt Count 174 MPV 9.8 Neut % (Auto) 63.8 Lymph % (Auto) 24.5 Wagoner % (Auto) 10.7 H Eos % (Auto) 0.5 Baso % (Auto) 0.5 Neut # (Auto) 3.9 Lymph # (Auto) 1.5 Wagoner # (Auto) 0.7 Eos # (Auto) 0.0 Baso # (Auto) 0.0 WBC Differential . Differential Comment Auto diff final PT INR APTT Fibrinogen POC Sodium Sodium 141 POC Potassium Potassium 4.0 POC Chloride Chloride 109 H Carbon Dioxide 25.9 Anion Gap 6 POC BUN BUN 21 H Creatinine 1.13 H POC Creatinine Estimated GFR 46 L POC Glucose Random Glucose 91 Hemoglobin A1c Calcium 8.1 L Total Bilirubin 0.5 AST 21 ALT 16 Alkaline Phosphatase 69 Total Creatine Kinase Troponin I C-Reactive Protein Total Protein 6.5 Albumin 2.9 L Triglycerides 77 Cholesterol 99 L LDL Cholesterol, Calc 39 HDL Cholesterol 44.5 Cholesterol/HDL Ratio 2.22 Vitamin B12 TSH Beta HCG, Quant Urine Color Straw Urine Clarity Clear Urine pH 5.0 Ur Specific [place] 1.025 Urine Protein Negative Urine Glucose (UA) Negative Urine Ketones Negative Urine Occult Blood Negative Urine Nitrate Negative Urine Bilirubin Negative Urine Urobilinogen Less than 2 Ur Leukocyte Esterase Small H Urine RBC Less than 1 Urine WBC 9 H Ur Squamous Epith Cells 1 Urine Bacteria Rare H Micro UA Comment Culture indicated Ur Microscopic Review Not Reportable Urine Culture Comments Culture indicated Urine Opiates Screen Ur Barbiturates Screen Ur Amphetamines Screen U Benzodiazepines Scrn Urine Cocaine Screen U Cannabinoids Screen Blood Type Blood Type Recheck Antibody Screen 03/17/18 03/17/18 03/17/18 07:10 07:10 07:10 WBC RBC Hgb POC Hgb (Calc) Hct POC Hct MCV MCH MCHC RDW Plt Count MPV Neut % (Auto) Lymph % (Auto) Wagoner % (Auto) Eos % (Auto) Baso % (Auto) Neut # (Auto) Lymph # (Auto) Wagoner # (Auto) Eos # (Auto) Baso # (Auto) WBC Differential Differential Comment PT INR APTT Fibrinogen POC Sodium Sodium POC Potassium Potassium POC Chloride Chloride Carbon Dioxide Anion Gap POC BUN BUN Creatinine POC Creatinine Estimated GFR POC Glucose Random Glucose Hemoglobin A1c 5.8 Calcium Total Bilirubin AST ALT Alkaline Phosphatase Total Creatine Kinase Troponin I C-Reactive Protein Less than 0.29 Total Protein Albumin Triglycerides Cholesterol LDL Cholesterol, Calc HDL Cholesterol Cholesterol/HDL Ratio Vitamin B12 435 Cancelled TSH 1.230 Cancelled Beta HCG, Quant Urine Color Urine Clarity Urine pH Ur Specific [place] Urine Protein Urine Glucose (UA) Urine Ketones Urine Occult Blood Urine Nitrate Urine Bilirubin Urine Urobilinogen Ur Leukocyte Esterase Urine RBC Urine WBC Ur Squamous Epith Cells Urine Bacteria Micro UA Comment Ur Microscopic Review Urine Culture Comments Urine Opiates Screen Ur Barbiturates Screen Ur Amphetamines Screen U Benzodiazepines Scrn Urine Cocaine Screen U Cannabinoids Screen Blood Type Blood Type Recheck Antibody Screen - Imaging Impressions Head CT 03/16/18 23:57 CONCLUSION: 1. No bleed or convincing evidence for an acute ischemic event. 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 Report was called to Dr. King at 12:38 AM Head CTA 03/16/18 23:57 CONCLUSION: No acute abnormality. Patent intracranial vessels. Neck CTA 03/16/18 23:57 CONCLUSION: 1. Mild atherosclerotic plaque of the bilateral carotid bifurcations without evidence of significant narrowing. No thrombosis or other acute abnormality is demonstrated. 2. Thyroid nodules and if not previously done, further characterization with outpatient thyroid ultrasound is recommended. Chest X-Ray 03/17/18 00:01 CONCLUSION: No evidence of acute cardiopulmonary disease. Assessment and Plan - Assessment (1) TIA (transient ischemic attack) Code(s): G45.9 - Transient cerebral ischemic attack, unspecified Status: Acute (2) HTN (hypertension) Code(s): I10 - Essential (primary) hypertension Status: Acute - Plan 87-year-old female with a PMH of HTN, Hyperlipidemia and h/o CVA admitted with slurred speech and right sided weakness: TIA: acute onset of confusion, expressive aphasia and right-sided weakness, now resolved ?hypertensive encephalopathy CT Head w/ old right parietotemporal infarct CTA Head negative CTA Neck w/ mild plaque bilateral carotid bifurcations, no significant narrowing LDL 39 HgbA1c 5.8 -Neurology following, appreciate assistance. MRI brain, EEG and echocardiogram ordered. Started on Plavix. -PT/OT/ST eval tx -continue on ASA and statin daily -monitor on telemetry -neuro checks -fall precautions Elevated creatinine, mild Possible YESIKA or CKD, ?dehydration, BUN 21 no baseline labs for comparison Cr 1.13, GFR 46 UA shows possible UTI -IVF -hold home Lasix and Losartan -avoid nephrotoxic agents -monitor kidney function, repeat BMP in am Bacteruria UA + small leukocytes, 9 WBCs, rare bacteria patient is asymptomatic -Begin IV Rocephin -await final urine cx results HTN: Uncontrolled, BP 199/87 -BP improved, now 133/59 -will start on Norvasc 5mg daily -continue to monitor BP and adjust treatment accordingly Hyperlipidemia: chronic -continue on statin therapy DVT Prophylaxis: SCD/Teds Code Status: FULL Discussed Condition With: patient, nursing staff, Dr. Nguyen Discharge Planning: Not ready for discharge. D/C pending Neurology clearance
--- NOTE | 2018-03-17 14:31 | ECG ---
Date Performed: 03/16/2018 Time Performed: 23:56:32 PTAGE: 87 years EKG: Sinus rhythm WITH OCCASIONAL SUPRAVENTRICULAR PREMATURE COMPLEXES BORDERLINE ECG NO PREVIOUS TRACING DOCTOR: Carissa Murillo Interpretating Date/Time 03/17/2018 14:28:44
--- NOTE | 2018-03-17 16:58 | MR ---
EXAM DATE: 03/17/2018 4:54 PM EDT AGE/SEX: 87 years / Female INDICATIONS: Confusion. CLINICAL DATA: This is the patient's initial encounter. Patient reports that signs and symptoms have been present for 1 day and indicates a pain score of 0/10. MEDICAL/SURGICAL HISTORY: Hypertension. CVA. Hysterectomy. Appendectomy. COMPARISON: [facility] [place], CT HEAD W/O CONTRAST, 03/17/2018. . TECHNIQUE: Multiplanar, multisequence examination of the brain was performed without contrast. FINDINGS: There is no evidence for intracranial hemorrhage, mass effect, mass lesions, edema, or extra-axial fl uid collections. There are no signs of acute infarction for technique. The diffusion portion is unr emarkable. Slight degree of brain atrophy is seen. Slight periventricular white matter changes are se en nonspecific mostly consistent with chronic small vessel ischemic changes. There is encephalomalac ia in bilateral posterior parietal lobes probably from old infarctions. CONCLUSION: Chronic small vessel ischemic and atrophic changes, old infarctions bilaterally. Electronically signed by: Linda Fierro MD 03/17/2018 4:57 PM EDT
[2018-03-17] MEDS: Timolol 0.5% Drops 5 ML Bottle EACH EYE SCH ×2 (20:52→22:59)
[2018-03-18 00:29] VITALS: RESP 16
[2018-03-18] MEDS: Sod Chloride 0.9% Inj 1,000 ML IV.CONT SCH (06:13)
[2018-03-18 08:09] LABS: Calcium 8.1 mg/dL (8.5-10.1); Potassium 3.8 meq/L (3.5-5.1)
--- NOTE | 2018-03-18 08:19 | P.PN ---
Subjective Interval history: Follow-up on patient with TIA. Patient seen and examined. Patient states she slept well. She denies any complaints. She denies any headache, dizziness, vision changes, weakness, numbness/tingling, chest pain or shortness of breath. Patient states she is recalling her words better. She feels she has returned to baseline. Patient lives alone was recently . Her son lives about an hour and a half away in [facility]. Physical Exam Vital signs: Vital Signs 03/17/18 08:30 03/17/18 11:59 03/17/18 12:00 Temperature 97.5 F L 98.5 F Pulse Rate 66 62 60 Respiratory Rate 18 20 Blood Pressure 152/75 H 133/59 L Pulse Oximetry 97 98 03/17/18 16:00 03/17/18 16:01 03/17/18 19:36 Temperature 98.7 F 98.5 F Pulse Rate 64 75 70 Respiratory Rate 18 18 Blood Pressure 160/71 H 126/60 Pulse Oximetry 99 97 03/18/18 00:27 03/18/18 04:00 Temperature 98.4 F 98.8 F Pulse Rate 69 66 Respiratory Rate 16 16 Blood Pressure 118/59 L 134/59 L Pulse Oximetry 97 97 Intake & Output 03/17/18 03/18/18 03/18/18 18:59 06:59 18:59 Intake Total 1000 / 1000 1100 / 1100 1000 / 1000 Balance 1000 / 1000 1100 / 1100 1000 / 1000 Intake: IV 1000 / 1000 1100 / 1100 1000 / 1000 NS Inj 1,000 ML @ 70 mls/hr IV. 1000 / 1000 1000 / 1000 CONT .[id number] [facility] Rx#:[id number] Rocephin Inj 1,000 MG In NS Inj 100 / 100 100 ML @ 200 mls/hr IV.SIG Q24H [facility] Rx#:[id number] Narrative: GENERAL: WDWN female. Awake and alert. Appears comfortable. In no acute distress. SKIN: Warm and dry. No rash. HEENT: Atraumatic. Normocephalic. Pupils equal and round. No scleral icterus. No injection or drainage. No nasal bleeding or discharge. Mucous membranes pink and moist. NECK: Trachea midline. CARDIOVASCULAR: Regular rate and rhythm. RESPIRATORY: No accessory muscle use. Clear to auscultation. Breath sounds equal bilaterally. GASTROINTESTINAL: Abdomen soft, non-tender, nondistended. +BS. MUSCULOSKELETAL: Extremities without clubbing, cyanosis, or edema. No obvious deformities. NEUROLOGICAL: Awake and alert. No obvious cranial nerve deficits. Motor grossly within normal limits. Able to move all 4 extremities spontaneously. Normal speech. PSYCHIATRIC: Appropriate mood and affect; insight and judgment normal. Results - Labs CBC & Chem 7: 03/17/18 07:10 03/18/18 06:40 Laboratory Results - last 24 hr 03/17/18 03/17/18 03/17/18 07:10 07:10 07:10 Sodium Potassium Chloride Carbon Dioxide Anion Gap BUN Creatinine Estimated GFR Random Glucose Hemoglobin A1c 5.8 Calcium C-Reactive Protein Less than 0.29 Vitamin B12 435 Cancelled TSH 1.230 Cancelled 03/18/18 06:40 Sodium 142 Potassium 3.8 Chloride 112 H Carbon Dioxide 24.0 Anion Gap 6 BUN 17 Creatinine 1.10 H Estimated GFR 47 L Random Glucose 80 Hemoglobin A1c Calcium 8.1 L C-Reactive Protein Vitamin B12 TSH - Imaging Impressions Head MRI 03/17/18 00:00 CONCLUSION: Chronic small vessel ischemic and atrophic changes, old infarctions bilaterally. 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 EEG neg. -Neurology following, appreciate assistance. Started on Plavix, continue. Cleared from Neuro standpoint without echocardiogram being done this admit. Will have done as outpatient -PT/OT/ST -continue on ASA and statin daily -monitor on telemetry -neuro checks -fall precautions Elevated creatinine, mild Possible YESIKA or CKD, ?dehydration, BUN 21 no baseline labs for comparison Cr 1.13, GFR 46 UA shows possible UTI Cr improved some to 1.10, suspect this is near patients baseline -hold home Lasix and Losartan -avoid nephrotoxic agents -monitor kidney function Suspected UTI UA + small leukocytes, 9 WBCs, rare bacteria patient is asymptomatic -on IV Rocephin -await final urine cx results - plan to d/c on po Ceftin HTN: Uncontrolled, BP 199/87 -started on Norvasc 5mg daily -continue to monitor BP and adjust treatment accordingly Hyperlipidemia: chronic -continue on statin therapy DVT Prophylaxis: SCD/Teds Discharge patient to home Condition on discharge: Stable Heart healthy Diet as tolerated Ad Daja activity [facility] with [facility] Rx written: Plavix 75mg daily, ASA 81mg daily Follow-up with primary care physician and neurologist Code Status: FULL Discussed Condition With: patient, nursing staff, Dr. Nguyen
[2018-03-18 08:26] VITALS: TEMP 98.6
[2018-03-18] MEDS ORDERED: Allopurinol 100 MG Tablet PO SCH (09:00)
[2018-03-18] MEDS: Senna/Docusate Sodium 8.6/50 MG Tablet PO SCH (09:50)
[2018-03-18] MEDS: Timolol 0.5% Drops 5 ML Bottle EACH EYE SCH (09:52)
--- NOTE | 2018-03-18 10:04 | MG ---
cc: Diaz Newton MD EEG RECORD NUMBER: [id number] Posterior rhythm of 6-7 Hz, 20-40 microvolts. Some frontal myogenic electrical artifact occurring. Good EEG variability reactivity. Further background slowing, transition to drowsy state. Reduced driving with photic stimulation. Single-lead EKG showing sinus rhythm. INTERPRETATION: Normal awake and drowsy EEG for this patient's age group. Clinical correlation. MD SANDRA Abdullahi/linwood , 08:25 AM , 08:29 AM
[2018-03-18] MEDS ORDERED: amLODIPine 5 MG Tablet PO SCH (10:15)
--- NOTE | 2018-03-18 11:11 | P.PNNEU ---
Subjective Subjective Comments: no cp, no dyspnea, no oliver, no focal weakness, no vision loss no dizziness or confusion feels well wants to go home Active Medications: Active Medications Acetaminophen (Tylenol) 650 mg PO Q4H PRN PRN Reason: Temp > 100.4 Al Hydroxide/Mg Hydroxide (Milk Of Magnesia Liq) 30 ml PO Q12H PRN PRN Reason: Mild Constipation Allopurinol (Zyloprim) 100 mg PO DAILY [facility] Last Admin: 03/18/18 09:50 Dose: 100 mg Amlodipine Besylate (Norvasc) 5 mg PO DAILY [facility] Last Admin: 03/18/18 10:46 Dose: Not Given Aspirin (Ecotrin) 325 mg PO DAILY [facility] Last Admin: 03/18/18 09:50 Dose: 325 mg Bisacodyl (Dulcolax Supp) 10 mg RECTAL DAILY PRN PRN Reason: SEVERE CONSITIPATION Cefuroxime Axetil (Ceftin) 250 mg PO Q12HR [facility] Stop: 03/25/18 20:59 Clopidogrel Bisulfate (Plavix) 75 mg PO DAILY [facility] Last Admin: 03/18/18 09:50 Dose: 75 mg Enalaprilat (Vasotec Inj) 1.25 mg IV.PUSH Q4H PRN PRN Reason: For SBP > 220 or DBP > 120 Lactulose (Lactulose Liq) 30 ml PO DAILY PRN PRN Reason: SEVERE CONSITIPATION Ondansetron HCl (Zofran Inj) 4 mg IV.PUSH Q6H PRN PRN Reason: NAUSEA OR VOMITING Pantoprazole Sodium (Protonix) 40 mg PO DAILY [facility] Last Admin: 03/18/18 09:50 Dose: 40 mg Pravastatin Sodium (Pravachol) 40 mg PO DAILY [facility] Last Admin: 03/18/18 09:49 Dose: 40 mg Senna/Docusate Sodium (Barbra-Colace) 1 tab PO BID [facility] Last Admin: 03/18/18 09:50 Dose: 1 tab Sennosides (Senokot) 17.2 mg PO Q12H PRN PRN Reason: Moderate Constipation Timolol Maleate (Timoptic 0.5% Drops) 1 drops EACH EYE BID [facility] Last Admin: 03/18/18 09:52 Dose: 1 drops Allergies/Adverse Reactions: Allergies Allergy/AdvReac Type Severity Reaction Status Date / Time No Known Allergies Allergy Unverified 03/16/18 23:57 Review of Systems All other systems reviewed negative except as stated in HPI Physical Exam Vital signs: Vital Signs 03/17/18 11:59 03/17/18 12:00 03/17/18 16:00 Temperature 98.5 F Pulse Rate 62 60 64 Respiratory Rate 20 Blood Pressure 133/59 L Pulse Oximetry 98 03/17/18 16:01 03/17/18 19:36 03/18/18 00:27 Temperature 98.7 F 98.5 F 98.4 F Pulse Rate 75 70 69 Respiratory Rate 18 18 16 Blood Pressure 160/71 H 126/60 118/59 L Pulse Oximetry 99 97 97 03/18/18 04:00 03/18/18 08:00 Temperature 98.8 F 98.6 F Pulse Rate 66 66 Respiratory Rate 16 16 Blood Pressure 134/59 L 151/67 H Pulse Oximetry 97 96 Intake & Output 03/17/18 03/18/18 03/18/18 18:59 06:59 18:59 Intake Total 1000 / 1000 1100 / 1100 1400 / 1400 Balance 1000 / 1000 1100 / 1100 1400 / 1400 Intake: IV 1000 / 1000 1100 / 1100 1400 / 1400 NS Inj 1,000 ML @ 70 mls/hr IV. 1000 / 1000 1000 / 1000 400 / 400 CONT .[id number] [facility] Rx#:[id number] Rocephin Inj 1,000 MG In NS Inj 100 / 100 100 ML @ 200 mls/hr IV.SIG Q24H [facility] Rx#:[id number] Narrative: GENERAL: in NAD, looks well SKIN: Warm and dry. HEAD: Atraumatic. Normocephalic. EYES: Pupils equal and round. No scleral icterus. ENT: No nasal bleeding or discharge. Mucous membranes pink and moist. NECK: Trachea midline. No JVD. CARDIOVASCULAR: Regular rate and rhythm. RESPIRATORY: No accessory muscle use. GASTROINTESTINAL: Abdomen soft, non-tender, nondistended. MUSCULOSKELETAL: Extremities without clubbing, cyanosis, or edema. No obvious deformities. NEUROLOGICAL: Awake and alert. Oriented 3 no aphasia, fluent articulate, right hemifacial spasm, chronic no facial asymmetry, OU 3-2mm, eomi, VFF, No drift, Motor grossly within normal limits. Five out of 5 muscle strength in the arms and legs. Tone normal in all 4 limbs, Sensory normal in all 4 extrermities to pin, msr 1-2+ sym, no clonus, planterflexor, PSYCHIATRIC: Appropriate mood and affect; insight and judgment normal. - Constitutional no acute distress - Routine HEENT Exam Head: Present: normocephalic Eye: Present: EOMI Objective Laboratory Results - last 24 hr 03/17/18 03/18/18 07:10 06:40 Sodium 142 Potassium 3.8 Chloride 112 H Carbon Dioxide 24.0 Anion Gap 6 BUN 17 Creatinine 1.10 H Estimated GFR 47 L Random Glucose 80 Hemoglobin A1c 5.8 Calcium 8.1 L Review/Management - Diagnosis (1) Acute confusion Code(s): R41.0 - Disorientation, unspecified Status: Acute Current Visit: Yes (2) Transient cerebral ischemia Code(s): G45.9 - Transient cerebral ischemic attack, unspecified Status: Acute Current Visit: Yes (3) HTN (hypertension) Code(s): I10 - Essential (primary) hypertension Status: Acute Current Visit : Yes (4) Hypertensive encephalopathy Code(s): I67.4 - Hypertensive encephalopathy Status: Acute Current Visit: Yes - Review/Management Plan: Possible hypertensive encephalopathy versus TIA Recently living alone Recommendations MRI brain scan demonstrating old strokes. EEG does not demonstrate any seizures although is at risk for it with previous strokes Continue aspirin and Plavix Blood pressure lipid control Outpatient follow-up with us May require more supervision at home. Her son lives in [place] No driving until seen outpatient by primary care and us
[2018-03-18 12:18] VITALS: O2SAT 99
[2018-03-18 12:27] VITALS: BP 152/67; PULSE 61
--- NOTE | 2018-03-18 12:32 | P.DCO ---
- Speech Therapy Order: To improve: Speech and communication skills, Cognitive skills - Home Health Nursing Order: Medical education, Signs/symptoms of disease process, Medication education-adverse effect, Nursing assessment with vital signs - Case Management Consult Yes - Certification I have seen patient Ashley Knutson on 03/18/18. My clinical findings support the need for the requested home health care services because: Deconditioned with increased weakness, Impaired cognition/judgement, High risk of falls I certify that my clinical findings support that this patient is homebound because: Impaired cognitive ability/safety, Unsafe to leave home unassisted, Unable to use public transportation
== END 2018-03-18 14:58 | disposition home or self-care (01) ==
LOC: NEDA 23:49 → NEPC 23:49 → NEPHCDU 03-17 03:54 → UNDODISOB 03-18 10:38
PROVIDERS: ADMIT Family Medicine; ATTEND Family Medicine